=== PATIENT | female | born 1995 | race Caucasian/White ===

== ENCOUNTER 2017-04-06 10:25 | Emergency (ER) | payer OTHER ==
[~2017-04-06] VITALS: Ht 154.9 cm; Wt 72.6 kg
[2017-04-06] MEDS ORDERED: ONDANSETRON HCL 4 MG/5 ML SOLUTION ONE (11:30)
[2017-04-06] MEDS ORDERED: ONDANSETRON HCL 4 MG/5 ML SOLUTION PO ONE (11:30)
--- NOTE | 2017-04-06 11:30 | NUR ---
marialuisa garcia at bedside
[2017-04-06 12:30] VITALS: BP 107/63
== END 2017-04-06 12:31 | disposition home or self-care (01) ==
LOC: ER 10:26
DX: R11.2 Nausea with vomiting, unspecified (principal)
CPT/HCPCS: 76856; 84703; 99284; A4606; Z7610; Q0162

== ENCOUNTER 2017-04-16 17:27 | Emergency (ER) | payer OTHER ==
[~2017-04-16] VITALS: Ht 154.9 cm; Wt 70.8 kg
--- NOTE | 2017-04-16 19:03 | NUR ---
RECEIVED REPORT FROM SOFI CAORLINA FOR C.O.C
--- NOTE | 2017-04-16 19:10 | NUR ---
[facility] CALLED. PT NOT A CANIDATE FOR RHOGAM
--- NOTE | 2017-04-16 19:11 | NUR ---
US AT BEDSIDE AT THIS TIME.
--- NOTE | 2017-04-16 19:39 | NUR ---
Patient discharged to home in stable condition. Written and verbal after care instructions given. Patient verbalizes understanding of instruction. ambulatory with a steady gait
[2017-04-16 19:40] VITALS: BP 118/68
== END 2017-04-16 19:57 | disposition home or self-care (01) ==
LOC: ER 17:30
DX: O20.0 Threatened abortion (principal); Z3A.01 Less than 8 weeks gestation of pregnancy
CPT/HCPCS: 36415; 76856-TC; 84702-TC; A4606; Z7610